=== PATIENT | female | born 1970 | race Caucasian/White ===

== ENCOUNTER 2020-04-09 00:09 | Emergency (ER) | payer OTHER, MEDICAID ==
[~2020-04-09] VITALS: Ht 170.2 cm; Wt 108.9 kg
[~2020-04-09 00:09] MED LIST: ABILIFY; CELEXA; DEPAKOTE; NEURONTIN
[2020-04-09 00:17] VITALS: BP_SYST 137
--- NOTE | 2020-04-09 00:17 | NUR ---
PT BIB AMBULANCE C/O 10/10 RIGHT LEG PAIN. PT REPORTS WORSENING PAIN IN THE [place] THAT IS IN HER RIGHT LEG FOR PAST 5 DAYS.
--- NOTE | 2020-04-09 05:45 | NUR ---
Patient to ER bed 2 to gown for evaluation. Side rails up.
--- NOTE | 2020-04-09 05:52 | NUR ---
Pt BIBA to ED C/O RIGHT LEG PAIN X 5 DAYS. No other complaints noted VSS no s/s of acute distress Resting on gurney rails up
--- NOTE | 2020-04-09 05:53 | NUR ---
Pt states "Motrin doesn't work for her, pleading to Doctor and ED staff for Vicodine"
[2020-04-09] MEDS ORDERED: KETOROLAC TROMETHAMINE 30 MG VIAL IM ONE (07:15)
--- NOTE | 2020-04-09 07:22 | NUR ---
Administered Toradol IM as ordered by Dr. Reza. Patient tolerated the medications well. See eMAR for details.
[2020-04-09 07:47] VITALS: BP_SYST 132
== END 2020-04-09 07:40 | disposition home or self-care (01) ==
LOC: SED 00:09
DX: G89.29 Other chronic pain (principal); M79.604 Pain in right leg; E07.9 Disorder of thyroid, unspecified; Z88.6 Allergy status to analgesic agent
CPT/HCPCS: 73590; 96372; 99283; J1885

== ENCOUNTER 2020-05-14 18:03 | Emergency (ER) | payer OTHER, MEDICAID ==
[~2020-05-14] VITALS: Ht 167.6 cm; Wt 104.3 kg
[2020-05-14 18:30] VITALS: BP_SYST 137
[2020-05-14 18:45] VITALS: BP_SYST 135
== END 2020-05-14 18:47 | disposition home or self-care (01) ==
LOC: SED 18:03
DX: Z76.0 Encounter for issue of repeat prescription (principal); E07.9 Disorder of thyroid, unspecified; Z88.1 Allergy status to other antibiotic agents
CPT/HCPCS: 99281

== ENCOUNTER 2021-02-09 16:06 | Emergency (ER) | payer OTHER, MEDICAID ==
[~2021-02-09] VITALS: Ht 167.6 cm; Wt 117.9 kg
[2021-02-09 16:06] VITALS: BP_SYST 135
[2021-02-09] MEDS ORDERED: SULFAMETHOXAZOLE/TRIMETHOPR DS 1 TABLET PO ONE (16:45)
[2021-02-09] MEDS ORDERED: SULF1TAB48 PO (16:46)
[2021-02-09 17:13] VITALS: BP_SYST 135
== END 2021-02-09 17:14 | disposition home or self-care (01) ==
LOC: SED 16:06
DX: L03.314 Cellulitis of groin (principal); E07.9 Disorder of thyroid, unspecified; Z88.6 Allergy status to analgesic agent; Z88.1 Allergy status to other antibiotic agents
CPT/HCPCS: 99283

== ENCOUNTER 2021-05-09 09:36 | Emergency (ER) | payer OTHER, MEDICAID ==
[~2021-05-09] VITALS: Ht 170.2 cm; Wt 117.5 kg
[~2021-05-09 09:36] MED LIST changes: +SULF1TAB48 PO
[2021-05-09 09:54] VITALS: BP_SYST 130
[2021-05-09] MEDS ORDERED: MYCOLOG15O TP (10:19)
[2021-05-09 10:48] VITALS: BP_SYST 115
[2021-05-09] MEDS ORDERED: DIF100 PO (10:53)
== END 2021-05-09 10:48 | disposition home or self-care (01) ==
LOC: SED 09:36
DX: L30.4 Erythema intertrigo (principal); Z88.1 Allergy status to other antibiotic agents; Z79.899 Other long term (current) drug therapy
CPT/HCPCS: 99283

== ENCOUNTER 2021-12-28 13:13 | Emergency (ER) | payer OTHER, MEDICAID ==
[~2021-12-28] VITALS: Ht 167.6 cm; Wt 121.1 kg
[2021-12-28 13:13] VITALS: BP_SYST 139
[~2021-12-28 13:13] MED LIST changes: -ABILIFY; -CELEXA; -DEPAKOTE; +ESCI10TA PO; +HYDR-3610 PO; +HYDR12.585 PO; +LEVO112T5 PO; +LEVO750T45 PO; +LURA80TA2 PO; +METR-154 PO; +MYCOLOG15O TP; -NEURONTIN; -SULF1TAB48 PO; +ZONI100C42 PO
--- NOTE | 2021-12-28 13:13 | NUR ---
BROUGHT BACK TO BED #6 AND TRIAGED. REPORT GIVEN TO OFELIA
--- NOTE | 2021-12-28 13:30 | NUR ---
RECEIVED PATIENT IN BED #6 WITH MULTIPLE SKIN COMPLAINTS IN AND AROUND VAGINA. PT IS AAOx3, NAD, VSS, ON MULTIPLE ANTIBIOTICS FOR SKIN ISSUES. PT TO BE FURTHER ASSESSED BY ED MD FOR PLAN OF CARE WITH DISPOSITION.
--- NOTE | 2021-12-28 14:30 | NUR ---
AT THE BEDSIDE WITH ER DR. FRANK FOR EXAM
[2021-12-28] MEDS ORDERED: CORTEARS EACH EAR (14:49)
[2021-12-28] MEDS ORDERED: CLEVAG VG (14:49)
[2021-12-28] MEDS ORDERED: CLIN-22 PO (15:01)
[2021-12-28 15:06] VITALS: BP_SYST 139
--- NOTE | 2021-12-28 15:08 | NUR ---
Patient given written and verbal discharge instructions and verbalizes understanding. ER MD discussed with patient the results and treatment provided. Patient in stable condition. ID arm band removed. Rx of CLINDAMYCIN, CLEOCIN VAGINAL AND CORTISPORIN EAR DROPS given. Patient educated on pain management and to follow up with PMD. Pain Scale 0/10. Opportunity for questions provided and answered. Medication side effect fact sheet provided.
== END 2021-12-28 15:08 | disposition home or self-care (01) ==
LOC: SED 13:13
DX: L73.9 Follicular disorder, unspecified (principal); H66.93 Otitis media, unspecified, bilateral
CPT/HCPCS: 99283

== ENCOUNTER 2024-02-18 10:22 | Emergency (ER) | payer OTHER, MEDICAID ==
[~2024-02-18] VITALS: Ht 167.6 cm; Wt 108.9 kg
[~2024-02-18 10:22] MED LIST changes: +CLEVAG VG; +CLIN-22 PO; +CORTEARS EACH EAR; -LEVO750T45 PO; +LEVO750T64 PO
[2024-02-18 10:31] VITALS: BP_SYST 98; PULSE 78; RESP 18; TEMP 98.3; O2SAT 98
== END 2024-02-18 15:45 | disposition left against medical advice (07) ==
LOC: SED 10:22
DX: L08.89 Other specified local infections of the skin and subcutaneous tissue (principal); Z53.21 Procedure and treatment not carried out due to patient leaving prior to being seen by health care provider